=== PATIENT | male | born 1980 | race Two or more races ===

== ENCOUNTER 2018-11-08 22:17 | Emergency (ER) | payer SELFPAY ==
[~2018-11-08] VITALS: Ht 172.7 cm; Wt 73.0 kg
[2018-11-08 22:22] VITALS: BP 133/40
== END 2018-11-08 23:40 | disposition left against medical advice (07) ==
LOC: ER 23:38
DX: Z53.21 Procedure and treatment not carried out due to patient leaving prior to being seen by health care provider (principal)